=== PATIENT | female | born 1975 | race Caucasian/White ===

== ENCOUNTER 2017-02-23 10:25 | Inpatient (IN) | payer BC ==
[2017-02-15 14:08] LABS: HEMATOCRIT 44.3 % (36.0-48.0); HEMOGLOBIN 14.5 g/dL (12.0-16.0)
--- NOTE | ~2017-02-23 | OP ---
Record Of Operation [facility] [address] [facility] [place]. [address] NAME: JOSE PAN : 73 STATUS : ADM Saud PAT#: [id number] AGE: 41 ADM/REG DATE : 02/23/17 MR#: [id number] REPORT SERV DATE: 02/24/17 DICTATED BY: ISHAAN BANERJEE II DATE: 02/24/17 REPORT STATUS : Draft TRANSCRIBED BY: MODL DATE: 02/24/17 DATE OF PROCEDURE: 02/23/2017 PREOPERATIVE DIAGNOSES: 1. 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 2. Nonunion, C4-5. 3. Remote history of C5 to C7 anterior fusion. 4. More recent history of C4-5 anterior fusion. 5. Persistent stenosis, C4-5, with myeloradiculopathy. POSTOPERATIVE DIAGNOSES: 1. 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 2. Nonunion, C4-5. 3. Remote history of C5 to C7 anterior fusion. 4. More recent history of C4-5 anterior fusion. 5. Persistent stenosis, C4-5, with myeloradiculopathy. PROCEDURE: 1. Posterior cervical laminectomy, C4-C5. 2. Posterolateral arthrodesis, C4-5, C7-T1. 3. Posterior instrumentation, C4-5, C7-T1. 4. Use of allograft substitute. Local autograft, and bone morphogenic protein. 5. Use of the stereotactic guidance system. SURGEON: Ishaan Banerjee M.D. FLUID: 1400 mL LR. ESTIMATED BLOOD LOSS: 100 mL. DRAINS: One drain. COMPLICATIONS: None. ANTIBIOTIC: Preoperatively. IMPLANTS: Alphatec. COMPLICATIONS: None. PREOPERATIVE HISTORY: This is a very friendly 41-year-old female, very well known to me. She has done very well with the surgery in the past. She has persisted in having a left upper extremity complaints following her C4-5 surgery. She appears to have some persistent stenosis at C4-5, more so from the posterior aspect. She has also having some persistent neck pain. I discussed with her this could very well be the C4-5 nonunion, but also could not completely rule out the C7-T1 segment. We also discussed the high rate of adjacent Record Of Operation [place] [id number] [facility] [place]. [address] NAME: JOSE PAN : 73 STATUS : ADM Saud PAT#: [id number] AGE: 41 ADM/REG DATE : 02/23/17 MR#: [id number] REPORT SERV DATE: 02/24/17 DICTATED BY: ISHAAN BANERJEE II DATE: 02/24/17 REPORT STATUS : Draft TRANSCRIBED BY: MODShe DATE: 02/24/17 segment degeneration at C7-T1, following C4 to C7 fusion. We discussed the pros and cons of including C7-T1 and ultimately she wanted this to be performed as well. In hopes that could potentially be hopefully her last cervical spine surgery. I discussed with her that she still could develop degeneration at C2-3 or C3-4. DESCRIPTION OF PROCEDURE: After informed consent was obtained, the patient was brought to the operating room at her request, and general anesthesia achieved. She was placed in prone position, following application of the [employer] tongs. She was placed in the prone position and the posterior neck and upper thoracic region was prepped and draped in a sterile fashion. The incision was made and subperiosteal exposure was completed from C4 to T1. The C5-6 and C6-7 levels were well fused as expected. The C4-5 still exhibited motion at the facet level. Clearly this was a nonunion as suspected. The facet capsules were removed at C4-5. We then also dissected down to C7-T1 which again showed motion as expected. At this point, the intraoperative CT scan was completed and the stereotactic guidance was used throughout the case. At this point, the laminectomy was carried out at C4-5. The central stenosis was moderate. This was alleviated with the [employer] rongeurs. The cord was well decompressed at the C4-5 level. The exiting C5 nerve roots were also well decompressed with the [employer] rongeurs. Next, the lateral mass screws were placed appropriately. We also placed pedicle screws into T1. The bone quality was excellent. A repeat CT scan confirmed acceptable placement of the implants. The rods were placed and final tightening was performed. Next, the irrigation was performed followed by decortication of the lateral masses of C4 and C5. We also decorticated the lateral masses of C7, and the transverse processes of T1. The respective joints at C4-5 and C7-T1 were also decorticated. Local autograft, allograft substitute, and bone morphogenic protein were then placed along the decorticated surfaces. A deep drain was placed, followed by standard closure, and the patient was then extubated, and transferred to PACU in stable condition. JULIAN/TELLY Ishaan Banerjee II, M.D. / [id number] CC: Ishaan Banerjee II, M.D.
[~2017-02-23 10:25] MED LIST: ARMOUR THYRO30 MG PO; CELEBREX1 PO; CYANO1000T PO; CYMBALTA60 PO; DEPO; DIL4TAB PO; FLEX PO; LEVAQUIN750 MG PO; LORTAB 5 PO; LORTAB10 PO; LYRICA50 PO; LYRICA75 PO; MEDROLPAK4 PO; METHOC750B PO; MOBIC15 MG PO; MSCONTIN PO; MULTIPLE VIT PO; MUSCLE RELAXER PO; NORCO1 TAB PO; PERCOCET1 TA4 PO; PHENTERMINE15 M1 PO; TOPAMAX100 PO; TYLENOL 8 HR650 MG PO; V2 PO; V5 PO; VITAMIN D1000 UNI1 PO; [UNRECOGNIZED DRUG - REMARK] PO
[2017-02-25] MEDS ORDERED: MSCONTIN PO (09:50)
[2017-02-25] MEDS ORDERED: V5 (09:52)
[2017-02-25] MEDS ORDERED: ROXICODONE15 MG PO (09:52)
== END 2017-02-25 17:52 | disposition home or self-care (01) | DRG 472 ==
LOC: SDC 10:25 → 3SO 19:29
PROVIDERS: Orthopaedic Surgery
PROC: 0RG4071 Fusion of Cervicothoracic Vertebral Joint with Autologous Tissue Substitute, Posterior Approach, Posterior Column, Open Approach (ICD-10-PCS; 2017-02-23)
PROC: 4A11X4G Monitoring of Peripheral Nervous Electrical Activity, Intraoperative, External Approach (ICD-10-PCS; 2017-02-23)
PROC: 0RG1071 Fusion of Cervical Vertebral Joint with Autologous Tissue Substitute, Posterior Approach, Posterior Column, Open Approach (ICD-10-PCS; principal; 2017-02-23 13:30)
DX: M96.0 Pseudarthrosis after fusion or arthrodesis (principal); M50.021 Cervical disc disorder at C4-C5 level with myelopathy; E03.9 Hypothyroidism, unspecified; M50.121 Cervical disc disorder at C4-C5 level with radiculopathy
CPT/HCPCS: 36415; 82962; 84703; 85014; 85018; 87641; 88304; 88311; A9270-GY; C1713; J0690; J1170; J2250; J2405; J2710; J3010